=== PATIENT | female | born 1940 | race Asian ===

== ENCOUNTER 2020-02-15 09:42 | Day surgery (SDC) | payer OTHER ==
[2020-02-13 12:44] VITALS: BMI 24.1
[2020-02-15] MEDS: TROPICAMIDE 1% OPHTH SOLN 15 ML BOTTLE ONE ×3 (10:25→10:35)
[2020-02-15] MEDS: CIPROFLOXACIN 0.3% EYE DROPS 5 ML BOTTLE ONE ×3 (10:25→10:35)
[2020-02-15] MEDS: PHENYLEPHRINE 2.5% OPHTH SOLN 15 ML BOTTLE ONE ×3 (10:25→10:35)
[2020-02-15] MEDS: CYCLOPENTOLATE 2% OPHTH SOLN 2 ML BOTTLE ONE ×3 (10:25→10:35)
[2020-02-15] MEDS ORDERED: CARBACHOL 0.01% INTRA-OCULAR 1.5 ML VIAL ONE (11:23)
[2020-02-15] MEDS ORDERED: BSS (NA/CA/MG/K) BALANCED SALT SOLUTION OPHTH SOLN 15 ML BOTTLE ONE (11:23)
[2020-02-15] MEDS ORDERED: NEO/POLYMYX B SULF/DEXAMETH OPHTHALMIC 5ML BOTTLE ONE (11:23)
[2020-02-15] MEDS ORDERED: LIDOCAINE 1% P/F 10 MG/ML VIAL ONE ×2 (11:23)
[2020-02-15] MEDS ORDERED: TETRACAINE 0.5% OPHTH SOLN 2 ML BOTTLE ONE (11:23)
[2020-02-15] MEDS ORDERED: MIDAZOLAM HCL 2 MG/2 ML SINGLE DOSE VIAL ONE (11:29)
[2020-02-15 12:20] VITALS: TEMP 98.1
[2020-02-15 12:55] VITALS: BP 118/70; PULSE 89
== END 2020-02-15 12:30 | disposition home or self-care (01) ==
LOC: FASU 09:42
PROVIDERS: ATTEND Ophthalmology
PROC: 08RJ3JZ Replacement of Right Lens with Synthetic Substitute, Percutaneous Approach (ICD-10-PCS; principal; 2020-02-15 11:34)
DX: H26.9 Unspecified cataract (principal)

== ENCOUNTER 2020-05-16 11:06 | Inpatient (IN) | payer OTHER ==
[2020-05-16] MEDS ORDERED: BAMLANIVIMAB 700 MG in SODIUM CHLORIDE 250 ML IVPB ONE (11:26)
[2020-05-16 12:24] LABS: BASO % 0.5 % (0-2.0); HEMATOCRIT 38.2 % (32.4-45.2); HEMOGLOBIN 13.3 GM/dL (10.7-15.3); LYMPH % 8.8 % (8-40); MCH 29.5 pg (25.7-33.7); MCHC 34.9 g/dl (32.0-36.0); MEAN CELL VOLUME 84.8 fl (80-96); MONO % 8.9 % (3.8-10.2); NEUT % 81.8 % (42.8-82.8); PLATELET COUNT 236 K/MM3 (134-434); RBC 4.51 M/mm3 (3.60-5.2); RDW 12.3 % (11.6-15.6); WHITE BLOOD COUNT 7.2 K/mm3 (4.0-10.0)
[2020-05-16 12:46] LABS: POTASSIUM 3.8 mmol/L (3.5-5.1)
[2020-05-16 12:47] LABS: EPI CELLS 5 /uL (0-25.1); HYALINE CASTS 0 /uL (0-3.1); PH,URINE 6.5 (5.0-8.0); URINE APPEARANCE CLEAR; URINE BACTERIA 166 /uL (0-1359); URINE BILIRUBIN NEGATIVE (NEGATIVE); URINE COLOR YELLOW; URINE GLUCOSE (UA) NEGATIVE (NEGATIVE); URINE KETONE NEGATIVE (NEGATIVE); URINE LEUK ESTERASE NEGATIVE (NEGATIVE); URINE NITRITE NEGATIVE (NEGATIVE); URINE PROTEIN 2+ (NEGATIVE); URINE RBC 31 /uL (0-23.9); URINE UROBILINOGEN 0.2 mg/dL (0.2-1.0); URINE WBC 6 /uL (0-25.8)
[2020-05-16 12:48] LABS: ALBUMIN 3.9 g/dl (3.4-5.0); BLOOD UREA NITROGEN 9.4 mg/dL (7-18); CALCIUM 9.1 mg/dL (8.5-10.1)
[2020-05-16 12:52] LABS: CREATININE 0.9 mg/dL (0.55-1.3)
[2020-05-16 12:53] LABS: BILIRUBIN,TOTAL 0.4 mg/dL (0.2-1); TOT PROT 7.8 g/dl (6.4-8.2)
[2020-05-16] MEDS ORDERED: SODIUM CHLORIDE 1,000 ML IV STA (13:02)
[2020-05-16 14:54] LABS: POTASSIUM 3.4 mmol/L (3.5-5.1)
[2020-05-16 14:57] LABS: BLOOD UREA NITROGEN 7.9 mg/dL (7-18); CALCIUM 8.2 mg/dL (8.5-10.1)
[2020-05-16 15:01] LABS: CREATININE 0.9 mg/dL (0.55-1.3)
[2020-05-16] MEDS ORDERED: ACETAMINOPHEN 500 MG TABLET (FP) PO ONE (15:05)
[2020-05-16] MEDS ORDERED: ACETAMINOPHEN 325 MG TABLET (FP) ONE ×2 (15:13→23:36)
[2020-05-16] MEDS ORDERED: POTASSIUM CHLORIDE TABS 20 MEQ TABLET.ER (FP) PO ONE ×2 (23:14→23:36)
[2020-05-16] MEDS ORDERED: AZITHROMYCIN IVPB 500 MG/250 ML BAG IVPB ONE ×2 (23:16→23:36)
[2020-05-16] MEDS ORDERED: ALBUTEROL SO4 HFA INHALER IH PRN (23:25)
[2020-05-16] MEDS: ACETAMINOPHEN 325 MG TABLET (FP) PO PRN (23:55)
[2020-05-17] MEDS ORDERED: ACETAMINOPHEN 325 MG TABLET (FP) ONE ×2 (07:08→11:54)
[2020-05-17] MEDS: ACETAMINOPHEN 325 MG TABLET (FP) PO PRN ×2 (07:15→12:03)
[2020-05-17 08:12] LABS: BASO % 0.3 % (0-2.0); HEMATOCRIT 36.7 % (32.4-45.2); LYMPH % 15.2 % (8-40); MCH 29.7 pg (25.7-33.7); MCHC 35.5 g/dl (32.0-36.0); MEAN CELL VOLUME 83.7 fl (80-96); MEAN PLT VOLUME 7.7 fl (7.5-11.1); MONO % 13.8 % (3.8-10.2); NEUT % 70.7 % (42.8-82.8); PLATELET COUNT 259 K/MM3 (134-434); RBC 4.38 M/mm3 (3.60-5.2); RDW 12.4 % (11.6-15.6); WHITE BLOOD COUNT 6.1 K/mm3 (4.0-10.0)
[2020-05-17 08:26] LABS: POTASSIUM 4.2 mmol/L (3.5-5.1)
[2020-05-17 08:31] LABS: CALCIUM 8.8 mg/dL (8.5-10.1)
[2020-05-17 08:32] LABS: ALBUMIN 3.7 g/dl (3.4-5.0)
[2020-05-17 08:35] LABS: CREATININE 0.8 mg/dL (0.55-1.3)
[2020-05-17 08:36] LABS: BILIRUBIN,TOTAL 0.5 mg/dL (0.2-1)
[2020-05-17 08:37] LABS: TOT PROT 7.5 g/dl (6.4-8.2)
[2020-05-17] MEDS ORDERED: PANTOPRAZOLE 40 MG TABLET ONE (09:25)
[2020-05-17] MEDS ORDERED: ASCORBIC ACID 500 MG TABLET (FP) ONE (09:25)
[2020-05-17] MEDS ORDERED: amLODIPine BESYLATE 5 MG TABLET (FP) ONE (09:26)
[2020-05-17] MEDS ORDERED: ZINC SULFATE 220 MG CAPSULE (FP) ONE (09:26)
[2020-05-17] MEDS ORDERED: DEXAMETHASONE SOD PHOSPHATE 4 MG/1 ML VIAL ONE (09:26)
[2020-05-17] MEDS ORDERED: HYDROCHLOROTHIAZIDE 25 MG TABLET (FP) ONE (09:26)
[2020-05-17] MEDS ORDERED: CHOLECALCIFEROL (VIT D3) 1,000 UNIT (25 MCG) TABLET ONE (09:27)
[2020-05-17] MEDS ORDERED: ATORVASTATIN CA 10 MG TABLET (FP) ONE (09:27)
[2020-05-17] MEDS ORDERED: LISINOPRIL 5 MG TABLET ONE (09:27)
[2020-05-17] MEDS ORDERED: ENOXAPARIN NA (PORCINE) 40 MG/0.4 ML DISP.SYRIN SQ ONE (09:27)
[2020-05-17] MEDS: amLODIPine BESYLATE 5 MG TABLET (FP) PO SCH (10:00)
[2020-05-17] MEDS: ZINC SULFATE 220 MG CAPSULE (FP) PO SCH ×2 (10:00→22:09)
[2020-05-17] MEDS: LISINOPRIL 5 MG TABLET PO SCH (10:00)
[2020-05-17] MEDS: ATORVASTATIN CA 10 MG TABLET (FP) PO SCH (10:00)
[2020-05-17] MEDS ORDERED: HYDROCHLOROTHIAZIDE 25 MG TABLET (FP) PO SCH (10:00)
[2020-05-17] MEDS: DEXAMETHASONE SOD PHOSPHATE 4 MG/1 ML VIAL IVPUSH SCH (10:06)
[2020-05-17] MEDS: ENOXAPARIN NA (PORCINE) 40 MG/0.4 ML DISP.SYRIN SQ SCH (10:10)
[2020-05-17] MEDS: PANTOPRAZOLE 40 MG TABLET PO SCH (10:11)
[2020-05-17] MEDS: ASCORBIC ACID 500 MG TABLET (FP) PO SCH ×2 (10:11→22:09)
[2020-05-17] MEDS: CHOLECALCIFEROL (VIT D3) 1,000 UNIT (25 MCG) TABLET PO SCH (10:11)
[2020-05-17] MEDS ORDERED: PARoxetine HCL 10 MG TABLET ONE (11:54)
[2020-05-17] MEDS: PARoxetine HCL 10 MG TABLET PO SCH (12:02)
[2020-05-17] MEDS ORDERED: ALPRAZolam 0.25 MG TABLET ONE (13:38)
[2020-05-17] MEDS: ALPRAZolam 0.25 MG TABLET PO SCH (13:45)
[2020-05-17 15:26] VITALS: BMI 25.0
[2020-05-17] MEDS: SODIUM CHLORIDE 1,000 ML IV SCH (18:21)
[2020-05-17] MEDS: AZITHROMYCIN IVPB 250 MG in DEXTROSE 5%-WATER - 250 ML IVPB SCH (18:21)
[2020-05-18] MEDS ORDERED: MELATONIN 5 MG TABLETS PO ONE (03:33)
[2020-05-18 09:12] LABS: BASO % 0.1 % (0-2.0); HEMATOCRIT 37.2 % (32.4-45.2); MCH 29.4 pg (25.7-33.7); MEAN CELL VOLUME 84.2 fl (80-96); MEAN PLT VOLUME 7.4 fl (7.5-11.1); NEUT % 38.9 % (42.8-82.8); PLATELET COUNT 318 K/MM3 (134-434); RBC 4.41 M/mm3 (3.60-5.2); RDW 12.7 % (11.6-15.6); WHITE BLOOD COUNT 3.9 K/mm3 (4.0-10.0)
[2020-05-18 09:58] LABS: ANISOCYTOSIS 0; MACROCYTOSIS 0; PLATELET ESTIMATE NORMAL
[2020-05-18] MEDS ORDERED: PT OWN MED DRAWER 7, Y5N ONE (10:05)
[2020-05-18 10:06] LABS: POTASSIUM 4.1 mmol/L (3.5-5.1)
[2020-05-18 10:10] LABS: ALBUMIN 3.6 g/dl (3.4-5.0)
[2020-05-18 10:11] LABS: BLOOD UREA NITROGEN 10.8 mg/dL (7-18)
[2020-05-18 10:15] LABS: TOT PROT 7.5 g/dl (6.4-8.2)
[2020-05-18 10:17] LABS: BILIRUBIN,TOTAL 0.9 mg/dL (0.2-1)
[2020-05-18] MEDS: DEXAMETHASONE SOD PHOSPHATE 4 MG/1 ML VIAL IVPUSH SCH (10:40)
[2020-05-18] MEDS: SODIUM CHLORIDE 1,000 ML IV SCH (10:42)
[2020-05-18] MEDS: AZITHROMYCIN IVPB 250 MG in DEXTROSE 5%-WATER - 250 ML IVPB SCH (10:42)
[2020-05-18] MEDS: PANTOPRAZOLE 40 MG TABLET PO SCH (10:43)
[2020-05-18] MEDS: LISINOPRIL 5 MG TABLET PO SCH (10:43)
[2020-05-18] MEDS: ASCORBIC ACID 500 MG TABLET (FP) PO SCH ×2 (10:44→21:57)
[2020-05-18] MEDS: CHOLECALCIFEROL (VIT D3) 1,000 UNIT (25 MCG) TABLET PO SCH (10:44)
[2020-05-18] MEDS: amLODIPine BESYLATE 5 MG TABLET (FP) PO SCH (10:44)
[2020-05-18] MEDS: ZINC SULFATE 220 MG CAPSULE (FP) PO SCH ×2 (10:44→21:57)
[2020-05-18] MEDS: ATORVASTATIN CA 10 MG TABLET (FP) PO SCH (10:45)
[2020-05-18] MEDS: ENOXAPARIN NA (PORCINE) 40 MG/0.4 ML DISP.SYRIN SQ SCH (10:46)
[2020-05-18] MEDS: ALPRAZolam 0.25 MG TABLET PO SCH (10:46)
[2020-05-18] MEDS: PARoxetine HCL 10 MG TABLET PO SCH (10:46)
[2020-05-18] MEDS ORDERED: MELATONIN 5 MG TABLETS PO PRN (22:29)
[2020-05-19] MEDS ORDERED: PT OWN MED DRAWER 7, Y5N ONE (10:56)
[2020-05-19 11:01] LABS: CALCIUM 9.4 mg/dL (8.5-10.1)
[2020-05-19 11:02] LABS: BLOOD UREA NITROGEN 11.4 mg/dL (7-18)
[2020-05-19] MEDS: AZITHROMYCIN IVPB 250 MG in DEXTROSE 5%-WATER - 250 ML IVPB SCH (11:07)
[2020-05-19] MEDS: DEXAMETHASONE SOD PHOSPHATE 4 MG/1 ML VIAL IVPUSH SCH (11:07)
[2020-05-19 11:12] LABS: POTASSIUM 4.3 mmol/L (3.5-5.1)
[2020-05-19] MEDS: ENOXAPARIN NA (PORCINE) 40 MG/0.4 ML DISP.SYRIN SQ SCH (11:15)
[2020-05-19] MEDS: LISINOPRIL 5 MG TABLET PO SCH (11:16)
[2020-05-19] MEDS: amLODIPine BESYLATE 5 MG TABLET (FP) PO SCH (11:16)
[2020-05-19] MEDS: ZINC SULFATE 220 MG CAPSULE (FP) PO SCH (11:17)
[2020-05-19] MEDS: ATORVASTATIN CA 10 MG TABLET (FP) PO SCH (11:17)
[2020-05-19] MEDS: ALPRAZolam 0.25 MG TABLET PO SCH (11:17)
[2020-05-19] MEDS: PARoxetine HCL 10 MG TABLET PO SCH (11:17)
[2020-05-19] MEDS: SODIUM CHLORIDE 1,000 ML IV SCH (11:18)
[2020-05-19] MEDS: ASCORBIC ACID 500 MG TABLET (FP) PO SCH (11:18)
[2020-05-19] MEDS: CHOLECALCIFEROL (VIT D3) 1,000 UNIT (25 MCG) TABLET PO SCH (11:18)
[2020-05-19] MEDS: PANTOPRAZOLE 40 MG TABLET PO SCH (11:18)
[2020-05-19 14:38] VITALS: BP 139/65; PULSE 106; TEMP 97.6
== END 2020-05-19 18:14 | disposition home or self-care (01) | DRG 178 ==
LOC: JER 11:06 → JERBED 19:03 → J6S 05-17 14:54
PROVIDERS: ADMIT Internal Medicine; ATTEND Internal Medicine
DX: U07.1 COVID-19 (principal); E87.1 Hypo-osmolality and hyponatremia; I10 Essential (primary) hypertension; E78.5 Hyperlipidemia, unspecified; F32.9 Major depressive disorder, single episode, unspecified; F41.9 Anxiety disorder, unspecified
CPT/HCPCS: 36415; 71045-TC-FY; 80048; 80053; 81003; 82436; 82728; 83930; 83935; 84133; 84300; 85025; 85379; 86140; 87086; 93005; 93010; 94010; 99285-25; C9803; M0239; Q0239; U0003

== ENCOUNTER 2020-12-12 08:13 | Day surgery (SDC) | payer OTHER ==
[2020-12-07 13:20] VITALS: BMI 23.3
[2020-12-12] MEDS: CIPROFLOXACIN 0.3% EYE DROPS 5 ML BOTTLE ONE ×3 (08:35→08:45)
[2020-12-12] MEDS: CYCLOPENTOLATE 2% OPHTH SOLN 2 ML BOTTLE ONE ×3 (08:35→08:45)
[2020-12-12] MEDS: TROPICAMIDE 1% OPHTH SOLN 15 ML BOTTLE ONE ×3 (08:35→08:45)
[2020-12-12] MEDS: PHENYLEPHRINE 2.5% OPHTH SOLN 15 ML BOTTLE ONE ×3 (08:35→08:45)
[2020-12-12] MEDS ORDERED: TETRACAINE 0.5% OPHTH SOLN 2 ML BOTTLE ONE (09:49)
[2020-12-12] MEDS ORDERED: NEO/POLYMYX B SULF/DEXAMETH OPHTHALMIC 5ML BOTTLE ONE (09:49)
[2020-12-12] MEDS ORDERED: LIDOCAINE 1% P/F 10 MG/ML VIAL ONE (09:49)
[2020-12-12] MEDS ORDERED: BSS (NA/CA/MG/K) BALANCED SALT SOLUTION OPHTH SOLN 15 ML BOTTLE ONE (09:49)
[2020-12-12] MEDS ORDERED: CARBACHOL 0.01% INTRA-OCULAR 1.5 ML VIAL ONE (09:49)
[2020-12-12] MEDS ORDERED: MIDAZOLAM HCL 2 MG/2 ML SINGLE DOSE VIAL ONE (10:01)
[2020-12-12 10:40] VITALS: TEMP 97.5
[2020-12-12 11:00] VITALS: BP 144/74; PULSE 79
== END 2020-12-12 11:00 | disposition home or self-care (01) ==
LOC: FASU 08:13
PROVIDERS: ATTEND Ophthalmology
PROC: 08RK3JZ Replacement of Left Lens with Synthetic Substitute, Percutaneous Approach (ICD-10-PCS; principal; 2020-12-12 10:10)
DX: H26.8 Other specified cataract (principal)